=== PATIENT | male | born 1940 | race Caucasian/White ===

== ENCOUNTER 2019-10-18 08:03 | Day surgery (SDC) | payer MEDICARE, BC ==
[2019-10-18] VITALS (9 sets, daily range): BP systolic 111–123; BP diastolic 58–779; PULSE 48–69; TEMP 97.1
[~2019-10-18] VITALS: Ht 172.7 cm; Wt 91.5 kg
[2019-10-18] MEDS ORDERED: ZETIA 10MG TAB10 MG PO (08:38)
[2019-10-18] MEDS ORDERED: TIROSINT100 MC1 PO (08:38)
[2019-10-18] MEDS ORDERED: VITAMIN D31000 I1 PO (09:04)
[2019-10-18] MEDS ORDERED: MOBIC15 MG PO (09:04)
[2019-10-18 09:06] LABS: HEMATOCRIT 43.8 % (42.0-52.0); HEMOGLOBIN 14.1 g/dl (13.5-18.0); MEAN CELL VOLUME 96 fl (80.0-100.0); MEAN CORPUSCULAR HEMOGLOBIN 31 pg (27.0-31.0); MEAN CORPUSCULAR HGB CONC 32 g/dl (33.0-37.0); MEAN PLATELET VOLUME 10.4 fl (7.4-10.4); PLATELET COUNT 215 K/mm3 (130-400); RED BLOOD COUNT 4.58 M/mm3 (4.20-5.60); REDCELL DISTRIBUTION WIDTH-CV 13.3 % (11.5-14.5)
[2019-10-18] MEDS ORDERED: prosvent PO (09:08)
[2019-10-18] MEDS ORDERED: ASPIRIN E.C. 8181 MG PO (09:09)
[2019-10-18] MEDS ORDERED: IMDUR 30MG30 MG/TAB PO (09:10)
[2019-10-18] MEDS ORDERED: MASON NATURAL1200 MG PO (09:10)
[2019-10-18 09:11] LABS: PROTHROMBIN TIME 10.9 SECONDS (9.7-12.8)
[2019-10-18] MEDS ORDERED: PLAVIX 75MG TAB75 MG PO (09:11)
[2019-10-18 09:17] LABS: CALCIUM 8.9 mg/dL (8.4-10.2); CREATININE, serum 1.02 (0.66-1.25); POTASSIUM 4.2 mmol/L (3.4-5.0)
--- NOTE | 2019-10-18 10:54 | NUR ---
SEE MERGE DOCUMENTATION FOR MEDICATION ADMINISTRATION TIMES AND INTRA/POST PROCEDURE SEDATION ASSESSMENTS. RIGHT HAND BARBEAU TEST POSITIVE.
--- NOTE | 2019-10-18 14:15 | NUR ---
Pt assisted to truck by wheelchair. No bleeding to radial puncture following loosening and removal of TR band. Site dressed with 2x2, bandid, and coban wrap. INT removed with catheter intact, bleeding controlled. DC instructions reviewed with pt and , both express understanding. Pt ambulated with steady gait prior to discharge, and has been tolerating PO well.
== END 2019-10-18 14:15 | disposition home or self-care (01) ==
LOC: COL.CAR 08:03
PROVIDERS: Internal Medicine Cardiovascular Disease
DX: I25.110 Atherosclerotic heart disease of native coronary artery with unstable angina pectoris (principal); R94.39 Abnormal result of other cardiovascular function study; E78.00 Pure hypercholesterolemia, unspecified; Z88.8 Allergy status to other drugs, medicaments and biological substances
CPT/HCPCS: C1769; J1644; J2250; J3010